=== PATIENT | male | born 1970 | race Two or more races ===

== ENCOUNTER → 2017-01-11 | Day surgery (SDC) | payer BC ==
[~2017-01-11] MED LIST: CYCL10TA2 PO; IBUP-1060 PO; IV RINGERS,LACTATED 1000ML 1,000 ML IV SCH; OMEP20CA9 PO; PROPOFOL 20 ML IV ONE
[2017-01-11 09:24] VITALS: BP 119/85
--- NOTE | 2017-01-12 02:51 | CONS ---
DATE OF CONSULTATION: 01/11/2017 REFERRING PHYSICIAN: Dr. Bay Blanco. HISTORY OF PRESENT ILLNESS: A 46-year-old male with past medical history significant for anxiety and gastroesophageal reflux disease, is seen with change in bowel habits. The patient has had some alternating diarrhea and constipation. It is not associated with any melena and/or hematochezia. He has also had some intermittent rectal pain. With the continued symptoms, colonoscopy is recommended. PAST MEDICAL HISTORY: Anxiety, GERD, depression. ALLERGIES: None. MEDICATIONS: Include cyclobenzaprine 10 mg p.r.n., ibuprofen 800 mg daily and omeprazole 20 mg daily. SOCIAL HISTORY: He is a social drinker, former smoker. FAMILY HISTORY: Noncontributory. REVIEW OF SYSTEMS: As above. PHYSICAL EXAMINATION: GENERAL: He is a well-nourished, well-developed male. VITAL SIGNS: Pulse 75, respiratory rate is 18. HEENT: Reveals a normocephalic, atraumatic head. Pupils and extraocular movements not tested. ____ due to childhood trauma. NECK: Supple. LUNGS: Clear. CARDIOVASCULAR: Reveals an S1, S2 without S3, S4 or appreciable murmur. ABDOMEN: Reveals a soft abdomen, normal bowel sounds, without appreciable hepatosplenomegaly. EXTREMITIES: Reveals missing digits on the right hand due to childhood trauma. IMPRESSION: Change in bowel habits with rectal pain, etiology is to be determined. Differential includes seizures, malignancy, polyps, inflammatory bowel disease among others. We will therefore recommend colonoscopy. Risks and benefits have been previously discussed including the risk of hemorrhage or perforation. He is willing to proceed at this time. EMERY MENDOZA MD DR: MAURICIO/diaz JOB#: [id number] / [id number]
--- NOTE | 2017-01-12 10:54 | PATHOLOGY ---
PATHOLOGY REPORT * * * * * * * * FINAL DIAGNOSIS: Colonic mucosa, "ascending colon polyp biopsy": - Fragments of tubular adenomas. - There is no evidence of high-grade dysplasia or malignancy. ([facility]; d/t: 01/12/17) REPORT ELECTRONICALLY SIGNED BY: Jerzy Reina M.D. DATE/TIME: 01/12/2017 10:53 * * * * * * * * GROSS PATHOLOGY: Received in formalin labeled "Anel Kwon, ascending colon polyp," are three segments of bowman soft tissue measuring from 0.1 up to 0.3 cm in maximum dimension. The specimen is submitted entirely in cassette A1. ([facility]; 01/11/17) INITIAL CPT CODE(S): A; 10943 Professional services performed [place] [address] Technical services performed by [facility] at [address] [place] [address] [address], [place] [address]. SPECIMEN(S) RECEIVED: A.Ascending colon polyp CLINICAL HISTORY: [facility], rectal pain; polyp PATIENT: ANEL KWON /AGE: 1105/28/1970 (Age: 46) PATIENT #: [id number] ALT CASE #: SPECIMEN COLLECTION DATE: 01/11/2017 SPECIMEN RECEIVED DATE: 01/11/2017 [facility] - [address] [place] [address] - PHONE: [phone] * * * END OF REPORT * * *
== END | disposition home or self-care (01) ==
LOC: ENDOS 07:40
PROVIDERS: ATTEND Internal Medicine Gastroenterology
DX: D12.2 Benign neoplasm of ascending colon (principal); K21.9 Gastro-esophageal reflux disease without esophagitis; K64.0 First degree hemorrhoids; M19.90 Unspecified osteoarthritis, unspecified site; F32.9 Major depressive disorder, single episode, unspecified; Z87.39 Personal history of other diseases of the musculoskeletal system and connective tissue; Z72.89 Other problems related to lifestyle
CPT/HCPCS: 45380; 88305; J2704